=== PATIENT | male | born 1970 | race Caucasian/White ===

== ENCOUNTER 2020-01-20 19:12 | Emergency (ER) | payer OTHER ==
[~2020-01-20] VITALS: Ht 180.3 cm; Wt 87.5 kg
[2020-01-20 19:14] VITALS: BP 107/76
[2020-01-20] MEDS ORDERED: DIPH,PERTUSS(ACELL),TET VAC/PF 0.5 ML IM-VACC ONE ×2 (19:30→19:42)
[2020-01-20] MEDS ORDERED: LIDOCAINE-MPF 1%, 5ML INFIL ONE (19:30)
[2020-01-20] MEDS ORDERED: LIDOCAINE-MPF 1%, 5ML ONE (19:42)
[2020-01-20] MEDS ORDERED: HYDROcodone/APAP 5/325 TABLET ONE (20:28)
[2020-01-20] MEDS ORDERED: HYDROcodone/APAP 5/325 TABLET PO ONE (20:30)
--- NOTE | 2020-01-20 20:38 | NUR ---
Pt here for left thumb laceration vs table saw blade. Pt reports severe pain. Pt has controlled bleeding but has significant trauma to thumb. good pulse and cap refill.
--- NOTE | 2020-01-20 21:16 | NUR ---
wound irrigated and cleansed with sterile saline
--- NOTE | 2020-01-20 22:33 | NUR ---
Thumb had adaptic wrapped around and then wrapped with gauze around to form a bulky dressing and was cleansed prior with wound cleanser.
--- NOTE | 2020-01-20 22:34 | NUR ---
Patient/Caregiver given discharge instructions and they have confirmed that they understand the instructions. Patient ambulatory with steady gait.
== END 2020-01-20 22:38 | disposition home or self-care (01) ==
LOC: ED 22:08
DX: S61.112A Laceration without foreign body of left thumb with damage to nail, initial encounter (principal); X58.XXXA Exposure to other specified factors, initial encounter; Y93.89 Activity, other specified; Y92.89 Other specified places as the place of occurrence of the external cause; Y99.8 Other external cause status
CPT/HCPCS: 12002; 90471; 90715; 99283

== ENCOUNTER 2020-01-27 09:58 | Emergency (ER) | payer OTHER ==
[~2020-01-27] VITALS: Ht 180.3 cm; Wt 88.2 kg
[2020-01-27 10:12] VITALS: BP 123/79
--- NOTE | 2020-01-27 10:14 | NUR ---
Ras foy in [facility] - 01/27/20 at 1014 by FLORENCE NOT IN [facility]
--- NOTE | 2020-01-27 10:14 | NUR ---
NOT IN LOBBY
--- NOTE | 2020-01-27 10:32 | NUR ---
SEEN HERE LAST SUNDAY FOR LT THUMB LAC, NEEDS SUTURES REMOVED. PT PRESENTS W/ TIP OF FINGER DARKENED, REPORTS WORSENING COLOR. Md to bedside-color not concerning- reinforvced wound care plan, need for orthopedic f/u Teach back successful
== END 2020-01-27 10:48 | disposition home or self-care (01) ==
LOC: ED 10:33
DX: S62.525D Nondisplaced fracture of distal phalanx of left thumb, subsequent encounter for fracture with routine healing (principal); X58.XXXD Exposure to other specified factors, subsequent encounter
CPT/HCPCS: 99281